=== PATIENT | male | born 2000 | race Hispanic/Latino ===

== ENCOUNTER 2021-11-15 10:56 | Emergency (ER) | payer OTHER ==
[~2021-11-15] VITALS: Ht 177.8 cm; Wt 95.1 kg
[2021-11-15] MEDS ORDERED: LIDOCAINE 4% CREAM 5GM (LMX4) TOP ONE (13:35)
[2021-11-15] MEDS ORDERED: NAPROXEN 250 MG TAB PO ONE (13:35)
[2021-11-15] MEDS ORDERED: ACETAMINOPHEN 500 MG TAB PO ONE (13:35)
[2021-11-15] MEDS ORDERED: NAPR-837 PO (13:45)
[2021-11-15] MEDS ORDERED: LIDO1CRE2 TOP (13:45)
[2021-11-15 14:00] VITALS: BP 129/67
== END 2021-11-15 14:21 | disposition home or self-care (01) ==
LOC: M ED 10:56
DX: S40.912A Unspecified superficial injury of left shoulder, initial encounter (principal); X50.9XXA Other and unspecified overexertion or strenuous movements or postures, initial encounter; Y99.1 Military activity

== ENCOUNTER 2022-06-12 22:13 | Emergency (ER) | payer OTHER ==
[~2022-06-12] VITALS: Ht 177.8 cm; Wt 90.9 kg
[2022-06-12 22:13] VITALS: BP 133/76
[~2022-06-12 22:13] MED LIST: LIDO1CRE2 TOP; NAPR-837 PO
[2022-06-13 00:53] LABS: GC DNA AMPLIFICATION NEGATIVE (NEGATIVE)
[2022-06-13] MEDS ORDERED: DOXY-443 PO (02:15)
[2022-06-13] MEDS ORDERED: DOXYCYCLINE HYCLATE 100MG TABLET PO ONE (02:30)
[2022-06-13 03:46] LABS: HIV 1&2 SCREEN ATELLICA NEGATIVE (NEGATIVE)
== END 2022-06-13 02:45 | disposition home or self-care (01) ==
LOC: M ED 22:13
DX: A74.9 Chlamydial infection, unspecified (principal)

== ENCOUNTER 2022-10-28 06:46 | Emergency (ER) | payer OTHER ==
[~2022-10-28] VITALS: Ht 177.8 cm; Wt 99.3 kg
[2022-10-28 06:46] VITALS: BP 141/86; TEMP 97.9; O2SAT 98
[~2022-10-28 06:46] MED LIST changes: +DOXY-443 PO
[2022-10-28] MEDS ORDERED: IBUP1TAB6 PO (06:51)
[2022-10-28] MEDS ORDERED: ACETAMINOPHEN TAB 650MG DOSE (2X325MG) PO ONE (08:10)
== END 2022-10-28 08:22 | disposition home or self-care (01) ==
LOC: M ED 06:46
DX: M23.91 Unspecified internal derangement of right knee (principal); R07.89 Other chest pain; W19.XXXA Unspecified fall, initial encounter; Y92.009 Unspecified place in unspecified non-institutional (private) residence as the place of occurrence of the external cause

== ENCOUNTER 2024-02-16 09:54 | Emergency (ER) | payer OTHER ==
[~2024-02-16] VITALS: Ht 177.8 cm; Wt 104.3 kg
[~2024-02-16 09:54] MED LIST changes: +DOXY-441 PO; -DOXY-443 PO; +IBUP1TAB6 PO; -LIDO1CRE2 TOP; +LIDO4CRE12 TOP
[2024-02-16 11:57] LABS: BASO % 0.3 % (0.0-1.0); EOS # 0.1 10^3/uL (0.0-0.5); EOS % 1.5 % (0.0-3.0); HEMATOCRIT 45.9 % (42.0-52.0); HEMOGLOBIN 15.6 g/dl (13.5-17.5); LYMPH % 13.5 % (24.0-44.0); MEAN CORPUSCULAR HEMOGLOBIN 29.1 pg (27.0-33.0); MEAN CORPUSCULAR VOLUME 85.5 fl (80.0-96.0); MONO # 0.5 10^3/uL (0.0-0.8); MONO % 6.6 % (2.0-8.0); NEUTROPHILS # 5.6 10^3/uL (1.5-8.5); NEUTROPHILS % 76.9 % (36.0-66.0); PLATELET COUNT, AUTOMATED 186 10^3/uL (150-450); RED BLOOD COUNT 5.37 10^6/uL (4.30-6.10); WHITE BLOOD COUNT 7.3 10^3/uL (4.0-10.0)
[2024-02-16 12:21] LABS: LIPASE 29 U/L (12-53)
[2024-02-16 12:23] LABS: ALBUMIN 3.8 G/DL (3.2-5.2); ALKALINE PHOSPHATASE 48 U/L (40-129); ALT/SGPT 50 U/L (7.0-40); AST/SGOT 24 U/L (<34); BILIRUBIN,DIRECT 0.2 MG/DL (<0.4); BILIRUBIN,TOTAL 0.7 MG/DL (0.3-1.2); BLOOD UREA NITROGEN 11 MG/DL (9-23); CALCIUM LEVEL 8.9 MG/DL (8.5-10.1); CARBON DIOXIDE LEVEL 28 MMOL/L (20-31); CHLORIDE LEVEL 106 MMOL/L (98-107); CREATININE FOR GFR 0.66 MG/DL (0.70-1.30); GLOMERULAR FILTRATION RATE > 60.0 (>60); GLUCOSE, FASTING 98 MG/DL (60-100); POTASSIUM SERUM 4.4 MMOL/L (3.5-5.1); SODIUM LEVEL 143 MMOL/L (136-145); TOTAL PROTEIN 6.9 G/DL (5.7-8.2)
[2024-02-16] MEDS ORDERED: ONDA-282 PO (12:28)
[2024-02-16] MEDS: ONDANSETRON 4MG TAB PO ONE (12:30)
[2024-02-16 12:45] VITALS: BP 126/75; TEMP 97.6; O2SAT 97
== END 2024-02-16 12:47 | disposition home or self-care (01) ==
LOC: M ED 09:54
DX: A09 Infectious gastroenteritis and colitis, unspecified (principal); Z79.899 Other long term (current) drug therapy